=== PATIENT | male | born 1985 | race Caucasian/White ===

== ENCOUNTER 2017-06-07 19:00 | Emergency (ER) | payer BC ==
[~2017-06-07] VITALS: Ht 170.2 cm; Wt 91.2 kg
[2017-06-07] MEDS ORDERED: OCUFLOX 0.100 DROP/5 LEFT EYE (21:56)
[2017-06-07] MEDS ORDERED: GENTAK3.5 GM LEFT EYE (21:56)
[2017-06-07 22:27] VITALS: BP 134/81
== END 2017-06-07 22:28 | disposition home or self-care (01) ==
LOC: EME 19:00
DX: H01.004 Unspecified blepharitis left upper eyelid (principal); H16.002 Unspecified corneal ulcer, left eye; Z87.891 Personal history of nicotine dependence
CPT/HCPCS: 99281; 99284